=== PATIENT | male | born 1960 | race Hispanic/Latino ===

== ENCOUNTER 2021-04-09 10:59 | Inpatient (IN) | payer MEDICARE ==
[~2021-04-09] VITALS: Ht 167.6 cm; Wt 86.2 kg
[2021-04-09] MEDS ORDERED: Vancomycin IV 1 GM in SODIUM CHLORIDE 0.9% 250ML 250 ML IV STA (11:03)
[2021-04-09 11:15] LABS: BASOPHILS % 0.5 % (0.0-1.0); EOSINOPHILS # (AUTO) 0.2 (0.0-0.4); EOSINOPHILS % 2.3 % (0.0-6.0); HEMATOCRIT 45.1 % (38.2-49.6); HEMOGLOBIN 14.7 g/dL (14.0-18.0); LYMPHOCYTES # (AUTO) 1.6 (1.0-3.2); LYMPHOCYTES % 20.7 % (18.0-39.1); MEAN CORPUSCULAR HEMOGLOBIN 31.4 pg (28-32); MEAN CORPUSCULAR HGB CONC 32.6 g/dL (31-35); MEAN CORPUSCULAR VOLUME 96.4 fL (81-99); MONOCYTES # (AUTO) 0.6 (0.2-0.8); MONOCYTES % 8.3 % (4.4-11.3); NEUTROPHILS % 66.9 % (38.7-80.0); PLATELET COUNT 196 x10e3/uL (140-360); RED BLOOD COUNT 4.68 x10e6/uL (4.3-5.7); RED CELL DISTRIBUTION WIDTH 14.1 % (11.7-14.4)
[2021-04-09] MEDS ORDERED: SODIUM CHLORIDE 0.9% 1000ML 1,000 ML IV SCH (11:15)
[2021-04-09] MEDS ORDERED: PIPERACILLIN/TAZOBACTAM 4.5 GM in SODIUM CHLORIDE 0.9% 100 ML IV ONE (11:30)
[2021-04-09 11:35] LABS: ALBUMIN/GLOBULIN RATIO 1.1 (0.8-2.0); ANION GAP 14.8 mmol/L (8-16); CALCIUM 11.4 mg/dL (8.4-10.2); CREATININE, SERUM 1.9 mg/dL (0.72-1.25); POTASSIUM 4.8 mmol/L (3.5-5.1)
[2021-04-09] MEDS ORDERED: Morphine 4mg Syringe 4 MG/ML INJ IV PRN (12:30)
[2021-04-09] MEDS ORDERED: ONDANSETRON HCL INJ 2MG/ML 2ML 2 MG/ML VIAL IV PRN (12:30)
[2021-04-09] MEDS: SODIUM CHLORIDE 0.9% 1000ML 1,000 ML IV SCH ×2 (12:33→23:25)
[2021-04-09 15:33] VITALS: BP 141/69
[2021-04-09 15:42] VITALS: BP 141/69
[2021-04-09 15:53] VITALS: BP 141/69
[2021-04-09] MEDS: INSULIN REGULAR, HUMAN 100 UNIT/1 ML SQ SCH ×2 (16:30→21:02)
[2021-04-09] MEDS ORDERED: DEXTROSE 50% SYRINGE 50 ML IV PRN (16:30)
[2021-04-09 20:34] VITALS: BP 141/56
[2021-04-09 20:52] VITALS: BP 141/56
[2021-04-10] VITALS (9 sets, daily range): BP systolic 128–162; BP diastolic 46–88
[2021-04-10] MEDS: SODIUM CHLORIDE 0.9% 1000ML 1,000 ML IV SCH ×2 (04:31→17:07)
[2021-04-10 05:06] LABS: BASOPHILS # (AUTO) 0.1 (0.0-0.1); BASOPHILS % 0.6 % (0.0-1.0); EOSINOPHILS # (AUTO) 0.2 (0.0-0.4); EOSINOPHILS % 2.8 % (0.0-6.0); HEMATOCRIT 44.8 % (38.2-49.6); HEMOGLOBIN 14.1 g/dL (14.0-18.0); LYMPHOCYTES # (AUTO) 1.3 (1.0-3.2); MEAN CORPUSCULAR HEMOGLOBIN 31.8 pg (28-32); MEAN CORPUSCULAR HGB CONC 31.5 g/dL (31-35); MEAN CORPUSCULAR VOLUME 101.1 fL (81-99); MONOCYTES # (AUTO) 0.6 (0.2-0.8); MONOCYTES % 7.7 % (4.4-11.3); NEUTROPHILS # (AUTO) 5.7 (2.1-6.9); PLATELET COUNT 188 x10e3/uL (140-360); RED BLOOD COUNT 4.43 x10e6/uL (4.3-5.7)
[2021-04-10 05:35] LABS: ANION GAP 14.2 mmol/L (8-16); CREATININE, SERUM 1.56 mg/dL (0.72-1.25); POTASSIUM 5.2 mmol/L (3.5-5.1)
[2021-04-10] MEDS: INSULIN REGULAR, HUMAN 100 UNIT/1 ML SQ SCH ×4 (07:30→22:03)
[2021-04-10] MEDS ORDERED: ASPIRIN EC81 MG PO (09:43)
[2021-04-10] MEDS ORDERED: METOPROLOL SUCC25 MG PO (09:43)
[2021-04-10] MEDS ORDERED: FUROSEMIDE40 MG PO (09:43)
[2021-04-10] MEDS ORDERED: TACROLIMUS1 MG PO (09:43)
[2021-04-10] MEDS ORDERED: PREDNISONE5 MG PO (09:43)
[2021-04-10] MEDS ORDERED: FAMOTIDINE20 MG PO (09:43)
[2021-04-10] MEDS ORDERED: ALLOPURINOL100 MG PO (09:43)
[2021-04-10] MEDS ORDERED: SOD POLYSTYRENE SULFONATE SUSP 15 GM/60 ML BTL PO ONE (10:00)
[2021-04-10] MEDS: Vancomycin IV 1 GM in SODIUM CHLORIDE 0.9% 250ML 250 ML IV SCH (10:52)
[2021-04-10] MEDS ORDERED: TACROLIMUS 0.5 MG CAP PO SCH (17:00)
[2021-04-10] MEDS: TACROLIMUS 1 MG CAP PO SCH (22:01)
[2021-04-11] VITALS (9 sets, daily range): BP systolic 92–157; BP diastolic 55–77
[2021-04-11] MEDS: SODIUM CHLORIDE 0.9% 1000ML 1,000 ML IV SCH ×3 (05:37→20:30)
[2021-04-11] MEDS: INSULIN REGULAR, HUMAN 100 UNIT/1 ML SQ SCH ×4 (07:30→21:11)
[2021-04-11] MEDS: ASPIRIN 81 MG ENTERIC COATED PO SCH (08:40)
[2021-04-11] MEDS: FUROSEMIDE 40 MG TAB PO SCH (08:40)
[2021-04-11] MEDS: METOPROLOL SUCCINATE 25 MG TAB XL PO SCH (08:40)
[2021-04-11] MEDS: PREDNISONE 5 MG TAB PO SCH (08:40)
[2021-04-11] MEDS: TACROLIMUS 1 MG CAP PO SCH ×2 (08:40→21:11)
[2021-04-11] MEDS: FAMOTIDINE 20 MG TAB PO SCH (08:40)
[2021-04-11] MEDS: Vancomycin IV 1 GM in SODIUM CHLORIDE 0.9% 250ML 250 ML IV SCH (08:40)
[2021-04-11] MEDS: ALLOPURINOL 100 MG TAB PO SCH (08:41)
[2021-04-12] VITALS (8 sets, daily range): BP systolic 129–167; BP diastolic 57–75
[2021-04-12] MEDS: SODIUM CHLORIDE 0.9% 1000ML 1,000 ML IV SCH ×2 (04:45→16:27)
[2021-04-12] MEDS: INSULIN REGULAR, HUMAN 100 UNIT/1 ML SQ SCH ×4 (07:30→22:14)
[2021-04-12] MEDS: TACROLIMUS 1 MG CAP PO SCH ×2 (08:15→21:08)
[2021-04-12] MEDS: FAMOTIDINE 20 MG TAB PO SCH (08:15)
[2021-04-12] MEDS: ASPIRIN 81 MG ENTERIC COATED PO SCH (08:15)
[2021-04-12] MEDS: METOPROLOL SUCCINATE 25 MG TAB XL PO SCH (08:15)
[2021-04-12] MEDS: FUROSEMIDE 40 MG TAB PO SCH (08:15)
[2021-04-12] MEDS: PREDNISONE 5 MG TAB PO SCH (08:15)
[2021-04-12] MEDS: ALLOPURINOL 100 MG TAB PO SCH (08:15)
[2021-04-12] MEDS: Vancomycin IV 1 GM in SODIUM CHLORIDE 0.9% 250ML 250 ML IV SCH (10:23)
[2021-04-13] VITALS (25 sets, daily range): BP systolic 136–178; BP diastolic 60–98
[2021-04-13] MEDS: SODIUM CHLORIDE 0.9% 1000ML 1,000 ML IV SCH (05:10)
[2021-04-13 05:25] LABS: ANION GAP 10.7 mmol/L (8-16); CREATININE, SERUM 1.23 mg/dL (0.72-1.25); POTASSIUM 3.7 mmol/L (3.5-5.1)
[2021-04-13 05:49] LABS: CALCIUM 9.4 mg/dL (8.4-10.2)
[2021-04-13] MEDS: INSULIN REGULAR, HUMAN 100 UNIT/1 ML SQ SCH ×4 (07:30→21:00)
[2021-04-13] MEDS: METOPROLOL SUCCINATE 25 MG TAB XL PO SCH (09:00)
[2021-04-13] MEDS: ALLOPURINOL 100 MG TAB PO SCH (09:00)
[2021-04-13] MEDS: FAMOTIDINE 20 MG TAB PO SCH (09:00)
[2021-04-13] MEDS: TACROLIMUS 1 MG CAP PO SCH ×2 (09:00→23:30)
[2021-04-13] MEDS: PREDNISONE 5 MG TAB PO SCH (09:00)
[2021-04-13] MEDS: ASPIRIN 81 MG ENTERIC COATED PO SCH (09:00)
[2021-04-13] MEDS: FUROSEMIDE 40 MG TAB PO SCH (09:00)
[2021-04-13] MEDS: Vancomycin IV 1 GM in SODIUM CHLORIDE 0.9% 250ML 250 ML IV SCH (09:37)
[2021-04-13] MEDS ORDERED: MIDAZOLAM HCL 2 MG/2 ML VIAL ONE (09:55)
[2021-04-13] MEDS ORDERED: SODIUM CHLORIDE 0.9% 1000ML 2,000 ML ONE (09:56)
[2021-04-13] MEDS ORDERED: IOPAMIDOL 300MG/ML 100 ML INFUS..BTL IV ONE (09:56)
[2021-04-13] MEDS ORDERED: HEPARIN SOD/SOD CHLORIDE 2,000 ML ONE (09:56)
[2021-04-13] MEDS ORDERED: LIDOCAINE HCL 2% LOCAL 20 ML VIAL ONE (09:56)
[2021-04-13] MEDS ORDERED: FENTANYL CITRATE/PF 100MCG/2 ML INJ ONE (09:56)
[2021-04-13] MEDS ORDERED: HEPARIN SOD/SOD CHLORIDE 1,000 ML ONE (12:55)
[2021-04-13] MEDS ORDERED: CLOPIDOGREL BISULFATE 75 MG TAB ONE (13:31)
[2021-04-13] MEDS ORDERED: ASPIRIN 325 MG TAB ONE (13:31)
[2021-04-13] MEDS ORDERED: ONDANSETRON HCL 4 MG ORAL DISINTEGRATING TAB PO PRN (16:00)
[2021-04-14] VITALS: BP 140/61
[2021-04-14] MEDS: SODIUM CHLORIDE 0.9% 1000ML 1,000 ML IV SCH (02:15)
[2021-04-14 04:00] VITALS: BP 128/70
[2021-04-14 08:05] VITALS: BP 154/74
[2021-04-14 08:32] VITALS: BP 184/85
[2021-04-14] MEDS: FUROSEMIDE 40 MG TAB PO SCH (08:42)
[2021-04-14] MEDS: ASPIRIN 81 MG ENTERIC COATED PO SCH (08:42)
[2021-04-14] MEDS: METOPROLOL SUCCINATE 25 MG TAB XL PO SCH (08:43)
[2021-04-14] MEDS: FAMOTIDINE 20 MG TAB PO SCH (08:43)
[2021-04-14] MEDS: PREDNISONE 5 MG TAB PO SCH (08:43)
[2021-04-14] MEDS: TACROLIMUS 1 MG CAP PO SCH (08:43)
[2021-04-14] MEDS: ALLOPURINOL 100 MG TAB PO SCH (08:44)
[2021-04-14] MEDS ORDERED: CLOPIDOGREL BISULFATE 75 MG TAB PO SCH (09:00)
[2021-04-14] MEDS: INSULIN REGULAR, HUMAN 100 UNIT/1 ML SQ SCH ×2 (09:26→12:10)
[2021-04-14] MEDS: Vancomycin IV 1 GM in SODIUM CHLORIDE 0.9% 250ML 250 ML IV SCH (10:23)
== END 2021-04-14 12:54 | disposition home or self-care (01) | DRG 271 ==
LOC: ER 11:04 → ERHOLD 12:22 → MED/SURG2 14:43 → OBSVTOIN 04-10 09:22
PROC: 047L3Z1 Dilation of Left Femoral Artery using Drug-Coated Balloon, Percutaneous Approach (ICD-10-PCS; principal; 2021-04-13)
PROC: 04CL3ZZ Extirpation of Matter from Left Femoral Artery, Percutaneous Approach (ICD-10-PCS; 2021-04-13)
PROC: 047Q3Z1 Dilation of Left Anterior Tibial Artery using Drug-Coated Balloon, Percutaneous Approach (ICD-10-PCS; 2021-04-13)
PROC: B41D1ZZ Fluoroscopy of Aorta and Bilateral Lower Extremity Arteries using Low Osmolar Contrast (ICD-10-PCS; 2021-04-13)
DX: E11.52 Type 2 diabetes mellitus with diabetic peripheral angiopathy with gangrene (principal); I96 Gangrene, not elsewhere classified; Z94.0 Kidney transplant status; L03.116 Cellulitis of left lower limb; L97.422 Non-pressure chronic ulcer of left heel and midfoot with fat layer exposed; L97.528 Non-pressure chronic ulcer of other part of left foot with other specified severity; Z79.899 Other long term (current) drug therapy; E78.5 Hyperlipidemia, unspecified; E11.621 Type 2 diabetes mellitus with foot ulcer; Z79.4 Long term (current) use of insulin; I25.10 Atherosclerotic heart disease of native coronary artery without angina pectoris; E11.628 Type 2 diabetes mellitus with other skin complications; Z86.16 Personal history of COVID-19; Z20.822 Contact with and (suspected) exposure to COVID-19; I70.25 Atherosclerosis of native arteries of other extremities with ulceration
CPT/HCPCS: 36247; 36415; 37224; 37228; 75625; 75716; 80048; 80053; 80202; 82948; 83036; 83605; 85025; 85651; 86141; 87040; 93925; 94799; 96372; 99152; 99153; 99284; C1725; C1769; C1887; C1894; G0378; J1817; J2001; J2250; J2543; J3010; J3370; J7030; J7050; J7507; J7512; Q9967; U0002

== ENCOUNTER → 2021-09-14 | Outpatient (CLI) | payer MEDICARE ==
[~2021-09-14] MED LIST: ALLOPURINOL100 MG PO; ASPIRIN EC81 MG PO; FAMOTIDINE20 MG PO; FUROSEMIDE40 MG PO; METOPROLOL SUCC25 MG PO; PREDNISONE5 MG PO; TACROLIMUS1 MG PO
== END ==
LOC: RAD 10:00
PROVIDERS: ATTEND Internal Medicine
DX: M75.42 Impingement syndrome of left shoulder (principal)

== ENCOUNTER → 2022-04-01 | Outpatient (CLI) | payer MEDICARE ==
[2022-03-30 14:55] LABS: BASOPHILS % 0.5 % (0.0-1.0); EOSINOPHILS # (AUTO) 0.2 (0.0-0.4); EOSINOPHILS % 2.6 % (0.0-6.0); HEMATOCRIT 39.6 % (38.2-49.6); HEMOGLOBIN 13.2 g/dL (14.0-18.0); LYMPHOCYTES # (AUTO) 1.6 (1.0-3.2); LYMPHOCYTES % 21.1 % (18.0-39.1); MEAN CORPUSCULAR HGB CONC 33.3 g/dL (31-35); MEAN CORPUSCULAR VOLUME 96.1 fL (81-99); MONOCYTES # (AUTO) 0.6 (0.2-0.8); MONOCYTES % 8.5 % (4.4-11.3); NEUTROPHILS # (AUTO) 4.9 (2.1-6.9); NEUTROPHILS % 66.1 % (38.7-80.0); PLATELET COUNT 143 x10e3/uL (140-360); RED BLOOD COUNT 4.12 x10e6/uL (4.3-5.7); RED CELL DISTRIBUTION WIDTH 14.3 % (11.7-14.4)
[~2022-04-01] MED LIST changes: +AMOXICILLIN500 MG PO; +CRESTOR10 MG PO; +LOSARTAN POTAS100 MG PO; +METFORMIN HCL500 MG PO; +SENSIPAR30 MG PO
== END ==
LOC: RAD 06:30 → EDSTATUS 08:30
PROVIDERS: ATTEND Internal Medicine Gastroenterology
DX: Z01.818 Encounter for other preprocedural examination (principal); R19.5 Other fecal abnormalities; R13.10 Dysphagia, unspecified; Z86.010 Personal history of colon polyps; Z53.8 Procedure and treatment not carried out for other reasons
CPT/HCPCS: 36415; 85025; 93005

== ENCOUNTER → 2022-05-06 | Day surgery (SDC) | payer MEDICARE ==
[2022-05-03 15:56] LABS: BASOPHILS % 0.5 % (0.0-1.0); EOSINOPHILS # (AUTO) 0.3 (0.0-0.4); EOSINOPHILS % 3.5 % (0.0-6.0); HEMATOCRIT 45.5 % (38.2-49.6); HEMOGLOBIN 14.2 g/dL (14.0-18.0); LYMPHOCYTES # (AUTO) 1.5 (1.0-3.2); MEAN CORPUSCULAR HEMOGLOBIN 32.3 pg (28-32); MEAN CORPUSCULAR HGB CONC 31.2 g/dL (31-35); MEAN CORPUSCULAR VOLUME 103.6 fL (81-99); MONOCYTES # (AUTO) 0.7 (0.2-0.8); MONOCYTES % 8.4 % (4.4-11.3); NEUTROPHILS # (AUTO) 5.7 (2.1-6.9); PLATELET COUNT 145 x10e3/uL (140-360); RED BLOOD COUNT 4.39 x10e6/uL (4.3-5.7); RED CELL DISTRIBUTION WIDTH 13.4 % (11.7-14.4)
[2022-05-03 16:18] LABS: INR 0.93; PROTHROMBIN TIME 12.7 seconds (11.9-14.5)
[2022-05-03 16:19] LABS: PARTIAL THROMBOPLASTIN TIME 31.7 seconds (23.8-35.5)
[2022-05-03 16:24] LABS: ANION GAP 18.9 mmol/L (8-16); CALCIUM 8.7 mg/dL (8.4-10.2); CREATININE, SERUM 2.35 mg/dL (0.72-1.25); POTASSIUM 4.9 mmol/L (3.5-5.1)
[~2022-05-06] MED LIST changes: +LIDOCAINE HCL 2% LOCAL INJ 5 ML SDV VIAL INJ ONE; +POVIDONE IODINE 0.05% 0.05 % ML PO ONE; +PROPOFOL IV EMULSION 10 MG/ML 20 ML VIAL ONE
[2022-05-06 10:25] VITALS: BP 138/74
== END | disposition home or self-care (01) ==
LOC: OR 06:13
PROVIDERS: ATTEND Internal Medicine Gastroenterology
DX: R19.5 Other fecal abnormalities (principal); Z86.010 Personal history of colon polyps; K29.50 Unspecified chronic gastritis without bleeding; R13.10 Dysphagia, unspecified; K64.8 Other hemorrhoids; E11.9 Type 2 diabetes mellitus without complications; R01.1 Cardiac murmur, unspecified; I10 Essential (primary) hypertension; Z79.82 Long term (current) use of aspirin; Z79.84 Long term (current) use of oral hypoglycemic drugs; Z79.899 Other long term (current) drug therapy
CPT/HCPCS: 36415 ×2; 43233; 43239; 45378; 80048; 82948; 85025; 85610; 85730; 88305; 88342; J2001; J2704; 88304; 88312